=== PATIENT | male | born 1985 | race Caucasian/White ===

== ENCOUNTER 2017-03-08 18:25 | Emergency (ER) | payer BC ==
--- NOTE | 2017-03-08 19:08 | EDM.PDOC ---
ED HPI GENERAL MEDICAL PROBLEM - General Chief Complaint: General Stated Complaint: CYST ON LOWER LIP Time Seen by Provider: 03/08/17 19:03 Source of Information: Reports: Patient History Limitations: Reports: No Limitations - History of Present Illness INITIAL COMMENTS - FREE TEXT/NARRATIVE: PT STATES HE DEVELOPED SORE ON LOWER LIP 9 DAYS AGO AND IS GETTING BIGGER. HABIT OF BITTING IT WITH TEETH. DENIES TRAUMA, FEVER, DIFFICULTY SWALLOWING, OR H/O SAME IN PAST. Onset: Gradual Location: Reports: Face Quality: Reports: Burning Severity: Mild Improves with: Reports: None Worsens with: Reports: None Associated Symptoms: Reports: No Other Symptoms - Related Data Allergies Allergy/AdvReac Type Severity Reaction Status Date / Time No Known Allergies Allergy Verified 03/08/17 18:42 Home Meds: Home Meds . [No Known Home Meds] 03/08/17 [History] Past Medical History - Past Health History Medical/Surgical History: Denies Medical/Surgical History Social & Family History - Family History Family Medical History: Noncontributory - Tobacco Use Smoking Status *Q: Never Smoker Second Hand Smoke Exposure: No - Caffeine Use Caffeine Use: Reports: Coffee - Recreational Drug Use Recreational Drug Use: No ED ROS GENERAL - Review of Systems Review Of Systems: ROS reveals no pertinent complaints other than HPI. Constitutional: Reports: No Symptoms HEENT: Reports: Other (LOWER LIP ULCER) Respiratory: Reports: No Symptoms Cardiovascular: Reports: No Symptoms Endocrine: Reports: No Symptoms GI/Abdominal: Reports: No Symptoms : Reports: No Symptoms Musculoskeletal: Reports: No Symptoms Skin: Reports: No Symptoms Neurological: Reports: No Symptoms Psychiatric: Reports: No Symptoms Hematologic/Lymphatic: Reports: No Symptoms Immunologic: Reports: No Symptoms ED EXAM, GENERAL - Physical Exam Exam: See Below Exam Limited By: No Limitations General Appearance: Alert, WD/WN, No Apparent Distress Nose: Normal Inspection, Normal Mucosa, No Blood Throat/Mouth: Normal Teeth, Normal Gums, Normal Oropharynx, Normal Voice, Other (CANKER ULCER ON LEFT LOWER LIP) Neck: Normal Inspection. No: Lymphadenopathy (L), Lymphadenopathy (R) Respiratory/Chest: No Respiratory Distress Neurological: Alert, Oriented, Normal Cognition Psychiatric: Normal Affect, Normal Mood Skin Exam: Warm, Dry, Intact, Normal Color, No Rash Lymphatic: No Adenopathy Course - Vital Signs Last Recorded V/S: Last Vital Signs Temp 98.8 F 07/28/17 18:39 Pulse 62 03/08/17 18:39 Resp 20 03/08/17 18:39 BP 127/84 03/08/17 18:39 Pulse Ox 100 03/08/17 18:39 - Re-Assessments/Exams Free Text/Narrative Re-Assessment/Exam: 03/08/17 19:06 PT AFEBRILE, NONTOXIC APPEARING, WILL TRY OTC MEDICATION AND F/U WITH PCP Departure - Departure Time of Disposition: 19:08 Disposition: Home, Self-Care 01 Condition: Good Clinical Impression: Canker sores oral - Discharge Information Instructions: Canker Sores Forms: ED Department Discharge Additional Instructions: TRY OTC MEDICATIONS AND F/U WITH PCP - Problem List Review Problem List Initiated/Reviewed/Updated: Yes - Assessment/Plan Assessment:: CANKER SORE ON LIP Plan: F/U WITH PCP
== END 2017-03-08 19:20 | disposition home or self-care (01) ==
LOC: KA.ED 18:25
DX: K12.0 Recurrent oral aphthae (principal)
CPT/HCPCS: 99282